=== PATIENT | male | born 1970 | race Caucasian/White ===

== ENCOUNTER 2017-11-01 00:18 | Emergency (ER) | payer MEDICARE, MEDICAID ==
[~2017-11-01] VITALS: Ht 177.8 cm; Wt 96.0 kg
[~2017-11-01 00:18] MED LIST: ABILIFY10 M1 PO; CYMBALTA60 MG PO; LIPITOR10 M1 PO; TORADOL PO; TRIUMEQ 600-50-1 TAB
[2017-11-01] MEDS ORDERED: NAPROSYN500 MG PO (02:17)
[2017-11-01 02:26] VITALS: BP 151/98
== END 2017-11-01 02:26 | disposition home or self-care (01) ==
LOC: ED 00:18
DX: S63.92XA Sprain of unspecified part of left wrist and hand, initial encounter (principal); S53.401A Unspecified sprain of right elbow, initial encounter; S00.81XA Abrasion of other part of head, initial encounter; I10 Essential (primary) hypertension; F32.9 Major depressive disorder, single episode, unspecified; F41.9 Anxiety disorder, unspecified; F17.210 Nicotine dependence, cigarettes, uncomplicated; W01.0XXA Fall on same level from slipping, tripping and stumbling without subsequent striking against object, initial encounter

== ENCOUNTER 2018-05-29 18:09 | Emergency (ER) | payer MEDICARE ==
[~2018-05-29] VITALS: Ht 177.8 cm; Wt 95.5 kg
[~2018-05-29 18:09] MED LIST changes: +NAPROSYN500 MG PO
[2018-05-29 18:53] LABS: HEMATOCRIT 37.3 % (39.0-50.0); HEMOGLOBIN 12.1 g/dl (14.0-18.0); IMMATURE GRANULOCYTES 0.5 % (0.0-5.0); MEAN CORPUSCULAR HGB 28.5 pG CALC (26.0-32.0); MEAN CORPUSCULAR HGB CONC 32.4 g/L CALC (32.0-36.0); NEUT# 4.91 thou/uL (1.82-7.42); RED BLOOD COUNT 4.24 mill/uL (4.70-6.10); RED CELL DISTRI WIDTH 13.7 % (11.5-15.5)
[2018-05-29 19:14] LABS: ALBUMIN 3.9 g/dL (3.2-5.0); ANION GAP 14 (6-22 (CALC)); BILIRUBIN, TOTAL 0.4 mg/dL (0.0-1.4); BUN 8 mg/dL (9-20); BUN/CREATININE RATIO 7 (12-20 (CALC)); CARBON DIOXIDE 26 mmol/l (22-30); CHLORIDE 106 mmol/l (95-108); CREATININE 1.1 mg/dL (0.7-1.3); GFR > 60 ML/MIN (>=60 (CALC)); GFR FOR AFR.AMER. > 60 ML/MIN (>=60 (CALC)); POTASSIUM 3.9 mmol/l (3.5-5.1); SGOT/AST 40 u/l (17-59); SODIUM 141 mmol/l (137-146); TOTAL PROTEIN 7.1 g/dL (6.3-8.2)
[2018-05-29 19:15] LABS: ALKALINE PHOSPHATASE 129 u/l (38-126)
[2018-05-29] MEDS ORDERED: AMOXICILLIN500 MG PO (19:26)
[2018-05-29] MEDS ORDERED: BENADRYL 50MG C50 MG PO (19:26)
[2018-05-29 20:35] VITALS: BP 116/85
== END 2018-05-29 20:35 | disposition home or self-care (01) ==
LOC: ED 18:09
PROVIDERS: Emergency Medicine
DX: J02.9 Acute pharyngitis, unspecified (principal); I10 Essential (primary) hypertension; F17.210 Nicotine dependence, cigarettes, uncomplicated; Z21 Asymptomatic human immunodeficiency virus [HIV] infection status

== ENCOUNTER 2018-09-30 09:11 | Emergency (ER) | payer MEDICARE ==
[~2018-09-30] VITALS: Ht 177.8 cm; Wt 97.0 kg
[~2018-09-30 09:11] MED LIST changes: +AMOXICILLIN500 MG PO; +BENADRYL 50MG C50 MG PO
[2018-09-30 10:51] LABS: IMMATURE GRANULOCYTES 0.5 % (0.0-5.0); MEAN CELL VOLUME 87.4 fL CALC (80.0-100.0); MEAN CORPUSCULAR HGB CONC 33.2 g/L CALC (32.0-36.0); NEUT# 6.2 thou/uL (1.82-7.42); RED BLOOD COUNT 5.14 mill/uL (4.70-6.10); RED CELL DISTRI WIDTH 13.2 % (11.5-15.5)
[2018-09-30 11:05] LABS: ALBUMIN 4.8 g/dL (3.2-5.0); ALKALINE PHOSPHATASE 91 u/l (38-126); ANION GAP 13 (6-22 (CALC)); BILIRUBIN, TOTAL 0.6 mg/dL (0.0-1.4); BUN 10 mg/dL (9-20); BUN/CREATININE RATIO 10 (12-20 (CALC)); CARBON DIOXIDE 30 mmol/l (22-30); CHLORIDE 105 mmol/l (95-108); GFR > 60 ML/MIN (>=60 (CALC)); GFR FOR AFR.AMER. > 60 ML/MIN (>=60 (CALC)); POTASSIUM 4.6 mmol/l (3.5-5.1); SGOT/AST 25 u/l (17-59); SODIUM 143 mmol/l (137-146); TOTAL PROTEIN 8.2 g/dL (6.3-8.2)
[2018-09-30 11:11] LABS: HEMATOCRIT 44.9 % (39.0-50.0); HEMOGLOBIN 14.9 g/dl (14.0-18.0)
[2018-09-30 12:00] VITALS: BP 126/69
[2018-10-01] MEDS ORDERED: AMOXICILLIN500 MG PO (20:44)
== END 2018-09-30 11:50 | disposition left against medical advice (07) ==
LOC: ED 09:11
PROVIDERS: Emergency Medicine
DX: S09.90XA Unspecified injury of head, initial encounter (principal); F15.10 Other stimulant abuse, uncomplicated; R07.89 Other chest pain; R51 Headache; R05 Cough; M54.2 Cervicalgia; Y04.2XXA Assault by strike against or bumped into by another person, initial encounter; Y04.1XXA Assault by human bite, initial encounter; Y92.009 Unspecified place in unspecified non-institutional (private) residence as the place of occurrence of the external cause; F17.200 Nicotine dependence, unspecified, uncomplicated

== ENCOUNTER 2018-10-01 18:05 | Emergency (ER) | payer MEDICARE ==
[~2018-10-01] VITALS: Ht 177.8 cm; Wt 97.8 kg
[2018-10-01 18:56] LABS: HEMATOCRIT 43.8 % (39.0-50.0); HEMOGLOBIN 14.6 g/dl (14.0-18.0); IMMATURE GRANULOCYTES 0.3 % (0.0-5.0); MEAN CELL VOLUME 86.4 fL CALC (80.0-100.0); MEAN CORPUSCULAR HGB 28.8 pG CALC (26.0-32.0); MEAN CORPUSCULAR HGB CONC 33.3 g/L CALC (32.0-36.0); NEUT# 8.05 thou/uL (1.82-7.42); RED BLOOD COUNT 5.07 mill/uL (4.70-6.10); RED CELL DISTRI WIDTH 13.4 % (11.5-15.5)
[2018-10-01 19:00] LABS: BARBITURATES NEGATIVE (NEGATIVE); COCAINE NEGATIVE (NEGATIVE); METHADONE NEGATIVE (NEGATIVE); OXCYCODONE NEGATIVE (NEGATIVE); TETRAHYDROCANNABIONOL NEGATIVE (NEGATIVE); TRICYLIC ANTIDEPRESSANTS NEGATIVE (NEGATIVE)
[2018-10-01 19:09] LABS: ALBUMIN 4.7 g/dL (3.2-5.0); ALKALINE PHOSPHATASE 80 u/l (38-126); ANION GAP 17 (6-22 (CALC)); BILIRUBIN, TOTAL 0.6 mg/dL (0.0-1.4); BUN 14 mg/dL (9-20); BUN/CREATININE RATIO 11 (12-20 (CALC)); CHLORIDE 107 mmol/l (95-108); CREATININE 1.2 mg/dL (0.7-1.3); GFR > 60 ML/MIN (>=60 (CALC)); GFR FOR AFR.AMER. > 60 ML/MIN (>=60 (CALC)); POTASSIUM 4.2 mmol/l (3.5-5.1); SGOT/AST 30 u/l (17-59); SODIUM 143 mmol/l (137-146)
[2018-10-01 19:15] LABS: CARBON DIOXIDE 23 mmol/l (22-30)
[2018-10-01] MEDS ORDERED: AMOXICILLIN500 MG PO (20:44)
[2018-10-01 20:50] VITALS: BP 134/84
== END 2018-10-01 21:00 ==
LOC: ED 18:05
PROVIDERS: Emergency Medicine
DX: S09.90XA Unspecified injury of head, initial encounter (principal); R07.89 Other chest pain; S11.95XA Open bite of unspecified part of neck, initial encounter; F19.10 Other psychoactive substance abuse, uncomplicated; I10 Essential (primary) hypertension; F17.200 Nicotine dependence, unspecified, uncomplicated; Y04.8XXA Assault by other bodily force, initial encounter; Y04.1XXA Assault by human bite, initial encounter; Z21 Asymptomatic human immunodeficiency virus [HIV] infection status
CPT/HCPCS: J2060; Q9967

== ENCOUNTER 2019-05-26 | Emergency (ER) | payer MEDICARE, MEDICAID ==
[~2019-05-26] MED LIST changes: -TRIUMEQ 600-50-1 TAB; +TRIUMEQ 600-50-1 TAB PO
[2019-05-26 03:08] LABS: HEMATOCRIT 46.9 % (39.0-50.0); HEMOGLOBIN 16.2 g/dl (14.0-18.0); IMMATURE GRANULOCYTES 0.4 % (0.0-5.0); MEAN CELL VOLUME 83.9 fL CALC (80.0-100.0); MEAN CORPUSCULAR HGB CONC 34.5 g/dL CAL (32.0-36.0); NEUT# 6.09 thou/uL (1.82-7.42); RED BLOOD COUNT 5.59 mill/uL (4.70-6.10); RED CELL DISTRI WIDTH 13.5 % (11.5-15.5)
[2019-05-26 03:15] LABS: ALBUMIN 4.5 g/dL (3.2-5.0); ALKALINE PHOSPHATASE 113 u/l (38-126); BILIRUBIN, TOTAL 0.6 mg/dL (0.0-1.4); BUN 9 mg/dL (9-20); BUN/CREATININE RATIO 7 (12-20 (CALC)); CREATININE 1.3 mg/dL (0.7-1.3); GFR 59 ML/MIN (>=60 (CALC)); GFR FOR AFR.AMER. > 60 ML/MIN (>=60 (CALC)); SGOT/AST 35 u/l (17-59); SODIUM 144 mmol/l (137-146)
[2019-05-26 03:16] LABS: ANION GAP 17 (6-22 (CALC)); CARBON DIOXIDE 11 mmol/l (22-30); CHLORIDE 120 mmol/l (95-108)
[2019-05-26] MEDS ORDERED: LOMOTIL2.5 MG PO (04:14)
[2019-05-26] MEDS ORDERED: DEXTROSTAT5 MG PO (04:39)
[2019-05-26] MEDS ORDERED: CLONAZEPAM1 MG PO (04:39)
[2019-05-26] MEDS ORDERED: VENLAFAXINE75 M1 PO (04:40)
[2019-05-26] MEDS ORDERED: VENLAFAXINE HCL75 M1 PO (04:40)
[2019-05-26] MEDS ORDERED: LAMOTRIGINE100 MG PO (04:41)
[2019-05-26] MEDS ORDERED: TERBINAFINE250 M1 PO (04:42)
== END 2019-05-26 04:20 | disposition home or self-care (01) ==
PROVIDERS: Family Medicine
DX: R19.7 Diarrhea, unspecified (principal); I10 Essential (primary) hypertension; F17.210 Nicotine dependence, cigarettes, uncomplicated; Z21 Asymptomatic human immunodeficiency virus [HIV] infection status

== ENCOUNTER 2019-12-21 06:38 | Emergency (ER) | payer MEDICARE, MEDICAID ==
[~2019-12-21] VITALS: Ht 177.8 cm; Wt 115.0 kg
[~2019-12-21 06:38] MED LIST changes: +CLONAZEPAM1 MG PO; +DEXTROSTAT5 MG PO; +LAMOTRIGINE100 MG PO; +LOMOTIL2.5 MG PO; +TERBINAFINE250 M1 PO; +VENLAFAXINE HCL75 M1 PO; +VENLAFAXINE75 M1 PO
[2019-12-21] MEDS ORDERED: SYMTUZA 800-1501 TAB PO (07:09)
[2019-12-21] MEDS ORDERED: ZYRTEC10 MG PO (07:10)
[2019-12-21] MEDS ORDERED: TRIMETHOPRIM SU OU (08:08)
[2019-12-21 09:50] VITALS: BP 138/91
--- NOTE | 2019-12-23 09:31 | NUR ---
Patient called for Covid results. Advised patient of negative results. Advised patient to continue with Covid prevention practices.
== END 2019-12-21 09:50 | disposition home or self-care (01) ==
LOC: ED 06:38
DX: U07.1 COVID-19 (principal); B30.9 Viral conjunctivitis, unspecified; S82.65XA Nondisplaced fracture of lateral malleolus of left fibula, initial encounter for closed fracture; I10 Essential (primary) hypertension; F41.9 Anxiety disorder, unspecified; F31.9 Bipolar disorder, unspecified; Z21 Asymptomatic human immunodeficiency virus [HIV] infection status; F17.210 Nicotine dependence, cigarettes, uncomplicated; X50.0XXA Overexertion from strenuous movement or load, initial encounter

== ENCOUNTER 2020-12-06 06:24 | Emergency (ER) | payer MEDICARE, MEDICAID ==
[~2020-12-06] VITALS: Ht 177.8 cm; Wt 118.0 kg
[~2020-12-06 06:24] MED LIST changes: +SYMTUZA 800-1501 TAB PO; +TRIMETHOPRIM SU OU; +ZYRTEC10 MG PO
[2020-12-06 07:33] LABS: HEMATOCRIT 44.1 % (39.0-50.0); HEMOGLOBIN 14.8 g/dl (14.0-18.0); IMMATURE GRANULOCYTES 0.1 % (0.0-5.0); MEAN CORPUSCULAR HGB 30.5 pG CALC (26.0-32.0); MEAN CORPUSCULAR HGB CONC 33.6 g/dL CAL (32.0-36.0); NEUT# 8.11 thou/uL (1.82-7.42); RED BLOOD COUNT 4.86 mill/uL (4.70-6.10); RED CELL DISTRI WIDTH 12.9 % (11.5-15.5)
[2020-12-06 07:34] LABS: MEAN CELL VOLUME 90.7 fL CALC (80.0-100.0)
[2020-12-06 07:45] LABS: ALBUMIN 4.6 g/dL (3.2-5.0); ALKALINE PHOSPHATASE 75 u/l (38-126); ANION GAP 14 (6-22 (CALC)); BILIRUBIN, TOTAL 0.9 mg/dL (0.0-1.4); BUN 10 mg/dL (9-20); BUN/CREATININE RATIO 9 (12-20 (CALC)); CARBON DIOXIDE 22 mmol/l (22-30); CHLORIDE 104 mmol/l (95-108); CREATININE 1.1 mg/dL (0.7-1.3); GFR > 60 ML/MIN (>=60 (CALC)); GFR FOR AFR.AMER. > 60 ML/MIN (>=60 (CALC)); MAGNESIUM 1.8 mg/dL (1.6-2.3); POTASSIUM 3.8 mmol/l (3.5-5.1); SGOT/AST 23 u/l (17-59); SODIUM 136 mmol/l (137-146); TOTAL PROTEIN 8.2 g/dL (6.3-8.2)
[2020-12-06 09:17] LABS: URINE BILIRUBIN - DIPSTICK NEGATIVE (NEGATIVE); URINE BLOOD DIPSTICK NEGATIVE (NEGATIVE); URINE COLOR YELLOW; URINE GLUCOSE - DIPSTICK NEGATIVE (NEGATIVE); URINE KETONE TRACE mg/dL (NEGATIVE); URINE LEUK ESTERASE NEGATIVE (NEGATIVE); URINE PROTEIN - DIPSTICK 30 mg/dL (NEG-TRACE)
[2020-12-06 09:28] LABS: URINE NITRITE - DIPSTICK NEGATIVE (Negative)
[2020-12-06] MEDS ORDERED: TORADOL PO (09:41)
[2020-12-06] MEDS ORDERED: CLEOCIN150 M1 PO (09:41)
[2020-12-06 09:46] VITALS: BP 144/82
== END 2020-12-06 09:56 | disposition home or self-care (01) ==
LOC: ED 06:24
PROVIDERS: Family Medicine
DX: K04.7 Periapical abscess without sinus (principal); K02.9 Dental caries, unspecified; L03.211 Cellulitis of face; I10 Essential (primary) hypertension; F31.9 Bipolar disorder, unspecified; F41.9 Anxiety disorder, unspecified; F17.210 Nicotine dependence, cigarettes, uncomplicated; Z21 Asymptomatic human immunodeficiency virus [HIV] infection status
CPT/HCPCS: Q9967

== ENCOUNTER 2020-12-07 09:38 | Emergency (ER) | payer MEDICARE, MEDICAID ==
[~2020-12-07 09:38] MED LIST changes: +CLEOCIN150 M1 PO
== END 2020-12-07 10:08 | disposition left against medical advice (07) ==
LOC: ED 09:38 → LWOBS 10:08
DX: Z53.21 Procedure and treatment not carried out due to patient leaving prior to being seen by health care provider (principal)

== ENCOUNTER 2022-02-19 01:00 | Emergency (ER) | payer MEDICARE, MEDICAID | END 2022-02-19 01:40 | disposition left against medical advice (07) | LOC: ED 01:00 → LWOBS 01:40 | DX: Z53.21 Procedure and treatment not carried out due to patient leaving prior to being seen by health care provider (principal) ==

== ENCOUNTER 2022-02-20 08:31 | Emergency (ER) | payer MEDICARE, MEDICAID | END 2022-02-20 09:25 | disposition left against medical advice (07) | LOC: ED 08:31 → LWOBS 09:24 → ED 09:24 → LWOBS 09:25 | DX: Z53.21 Procedure and treatment not carried out due to patient leaving prior to being seen by health care provider (principal) ==

== ENCOUNTER → 2022-07-13 | Day surgery (SDC) | payer MEDICARE, MEDICAID ==
[~2022-07-13] VITALS: Ht 177.8 cm; Wt 95.3 kg
[~2022-07-13] MED LIST changes: +B COMPLE2 PO; +BIKTARVY 50-2001 TAB; +CIPROFLOXACN500 MG PO
[2022-07-13 09:24] VITALS: BP 137/89
== END | disposition home or self-care (01) ==
LOC: ORM 08:00
PROVIDERS: ATTEND Surgery
DX: K42.9 Umbilical hernia without obstruction or gangrene (principal); B20 Human immunodeficiency virus [HIV] disease; F17.200 Nicotine dependence, unspecified, uncomplicated; Z79.899 Other long term (current) drug therapy; Z53.09 Procedure and treatment not carried out because of other contraindication; R82.5 Elevated urine levels of drugs, medicaments and biological substances
CPT/HCPCS: J0690

== ENCOUNTER 2023-10-06 01:34 | Emergency (ER) | payer MEDICARE, MEDICAID ==
[2023-10-06] VITALS (7 sets, daily range): BP systolic 132–184; BP diastolic 79–108
[~2023-10-06] VITALS: Ht 177.8 cm; Wt 92.0 kg
[2023-10-06] MEDS ORDERED: MORPHINE SULFATE 4 MG/ML VIAL IV STA (01:45)
[2023-10-06] MEDS ORDERED: KETOROLAC TROMETHAMINE 30 MG/ML SDV IV STA (01:45)
[2023-10-06] MEDS ORDERED: ONDANSETRON HCl 4 MG/2 ML SDV IV STA (01:45)
[2023-10-06] MEDS ORDERED: TAMSULOSIN HCL 0.4 MG CAP PO STA (01:45)
[2023-10-06] MEDS ORDERED: CHOLESTEROL MED (01:54)
[2023-10-06] MEDS ORDERED: CALCIUM TABLET (01:54)
[2023-10-06] MEDS ORDERED: MAGNESIUM TABLET (01:55)
[2023-10-06 02:25] LABS: BASO% 0.4 % (0-3); EOS% 1.5 % (0-8); HEMATOCRIT 39.9 % (39.0-50.0); HEMOGLOBIN 13.3 g/dl (14.0-18.0); IMMATURE GRANULOCYTES 0.5 % (0.0-5.0); LYMPH% 21.1 % (15-41); MEAN CELL VOLUME 89.7 fL CALC (80.0-100.0); MEAN CORPUSCULAR HGB 29.9 pG CALC (26.0-32.0); MEAN CORPUSCULAR HGB CONC 33.3 g/dL CAL (32.0-36.0); MONO% 6.5 % (2-13); NEUT# 8.37 thou/uL (1.82-7.42); RED BLOOD COUNT 4.45 mill/uL (4.70-6.10); RED CELL DISTRI WIDTH 13.5 % (11.5-15.5)
[2023-10-06 02:34] LABS: ALBUMIN 4.4 g/dL (3.2-5.0); CREATININE 1.4 mg/dL (0.7-1.3); TOTAL PROTEIN 7.2 g/dL (6.3-8.2)
[2023-10-06 03:52] LABS: URINE BILIRUBIN - DIPSTICK Negative (NEGATIVE); URINE BLOOD DIPSTICK Moderate (NEGATIVE); URINE GLUCOSE - DIPSTICK Negative (NEGATIVE); URINE KETONE Negative (NEGATIVE); URINE LEUK ESTERASE Negative (NEGATIVE); URINE NITRITE - DIPSTICK Negative (Negative); URINE PH 7.5 (4.5-8.0); URINE PROTEIN - DIPSTICK 30 mg/dL (NEG-TRACE); URINE SPECIFIC GRAVITY 1.025; URINE UROBILINOGEN - DIPSTICK 0.2 E.U./dL (0.2)
[2023-10-06 03:56] LABS: URINE COLOR Yellow
[2023-10-06 03:58] LABS: URINE BACTERIA MODERATE hpf; URINE RBC 50-100 RBC/hpf (0-5); URINE SQUAMOUS EPITHELIAL CELL FEW EPI/hpf (0-FEW)
[2023-10-06] MEDS ORDERED: PERCOCET 5/325M1 TAB PO (04:09)
[2023-10-06] MEDS ORDERED: ONDANSETRON4 MG PO (04:09)
[2023-10-06] MEDS ORDERED: TAMSULOSIN0.4 MG PO (04:09)
[2023-10-06] MEDS ORDERED: TORADOL PO (04:09)
== END 2023-10-06 04:45 | disposition home or self-care (01) ==
LOC: ED 01:34
PROVIDERS: Emergency Medicine
DX: N13.2 Hydronephrosis with renal and ureteral calculous obstruction (principal); I10 Essential (primary) hypertension; F41.9 Anxiety disorder, unspecified; F31.9 Bipolar disorder, unspecified; F17.200 Nicotine dependence, unspecified, uncomplicated; Z21 Asymptomatic human immunodeficiency virus [HIV] infection status; Z79.899 Other long term (current) drug therapy